=== PATIENT | female | born 1955 | race Caucasian/White ===

== ENCOUNTER → 2017-01-11 | Outpatient (CLI) | payer BC ==
[~2017-01-11] MED LIST: ALPHTAB9 PO; B-CO1CAP5 PO; CALC-354 PO; CHOL1000 PO; DULO60CA44 PO; GABA-1218 PO; GABA1CAP PO; LEVO150T PO; METF500T PO; MONT1TAB5 PO; MULTTAB PO; OMEGCAP2 PO; OMEP20TA PO; OXYC-292 PO; XRL10 PO; ZOLP10TA PO
== END | disposition home or self-care (01) ==
LOC: C.PAPS 08:31
PROVIDERS: ATTEND Obstetrics & Gynecology
DX: Z01.411 Encounter for gynecological examination (general) (routine) with abnormal findings (principal)

== ENCOUNTER → 2017-04-28 | Outpatient (CLI) | payer BC ==
[~2017-04-28] MED LIST changes: -GABA-1218 PO; +GABA300C19 PO
--- NOTE | 2017-04-28 12:44 | MAMMOGRAPHY REPORT ---
BILATERAL DIGITAL SCREENING MAMMOGRAM TOMOSYNTHESIS WITH CAD: 04/28/2017 CLINICAL HISTORY: Routine screening. Patient has no complaints. TECHNIQUE: Breast tomosynthesis in addition to standard 2D mammography was performed. Current study was also evaluated with a Computer Aided Detection (CAD) system. COMPARISON: Comparison is made to exams dated: 02/05/2016 mammogram, 01/30/2015 mammogram, 01/25/2013 ma mmogram, 01/18/2013 mammogram, and 01/13/2012 mammogram - [facility]. BREAST COMPOSITION: The tissue of both breasts is almost entirely fatty. FINDINGS: No suspicious masses, calcifications, or areas of architectural distortion are noted in ei ther breast. There has been no significant interval change compared to prior exams. IMPRESSION: ACR BI-RADS CATEGORY 1: NEGATIVE There is no mammographic evidence of malignancy. A 1 year screening mammogram is recommended. The pa tient will receive written notification of the results. Approximately 10% of breast cancers are not detected with mammography. A negative mammographic report should not delay biopsy if a clinically suggestive mass is present. Lindy Worthy M.D. ah/:04/28/2017 10:16:54 Back Joiner: Nany [facility](R)(M), [facility] letter sent: Normal 1/2 BI-RADS Code: ACR BI-RADS Category 1: Negative
== END | disposition home or self-care (01) ==
LOC: C.MAMM 08:46
PROVIDERS: ATTEND Obstetrics & Gynecology
DX: Z12.31 Encounter for screening mammogram for malignant neoplasm of breast (principal)

== ENCOUNTER → 2017-05-25 | Outpatient (CLI) | payer BC | END | disposition home or self-care (01) | LOC: C.MAMM 08:48 | PROVIDERS: ATTEND Family Medicine | DX: Z78.0 Asymptomatic menopausal state (principal); M85.852 Other specified disorders of bone density and structure, left thigh; M81.0 Age-related osteoporosis without current pathological fracture ==

== ENCOUNTER → 2018-03-23 | Outpatient (CLI) | payer OTHER ==
[~2018-03-23] MED LIST changes: +GABA-1218 PO; +GABA-1693 PO; -GABA1CAP PO; -GABA300C19 PO; +OPTIRAY 320 IV PRN
--- NOTE | 2018-03-23 16:12 | DIAGNOSTIC IMAGING REPORT ---
CT SCAN OF THE ABDOMEN AND PELVIS WITH IV CONTRAST CLINICAL HISTORY: Right lower quadrant abdominal pain. COMPARISON STUDY: KUB dated 02/11/2016. Abdominal ultrasound dated 05/05/2011. TECHNIQUE: Following the IV administration of 94 cc of Optiray 320, CT scan of the abdomen and pelvis is performed from the lung bases to the proximal femora. Images are reviewed in the axial, sagittal, and coronal planes. IV contrast was administered without complication. A dose lowering technique was utilized adhering to the principles of ALARA. CT DOSE: 1373.89 mGy.cm FINDINGS: Lung bases: The heart is normal in size and without pericardial effusion. The lung bases are clear. There is a small hiatal hernia. Liver: The contrast-enhanced liver is normal in size and contour. The liver demonstrates diffusely diminished attenuation consistent with hepatic steatosis. Fatty sparing is seen adjacent to gallbladder fossa. There is no intrahepatic biliary ductal dilatation. The hepatic veins and portal veins are patent. Gallbladder: Unremarkable. Spleen: Normal in size and attenuation. Pancreas: Moderately atrophic and grossly unremarkable. Adrenal glands: Unremarkable. Kidneys: The contrast enhanced kidneys are normal in size and without hydronephrosis. The kidneys enhance symmetrically. A subcentimeter cortical hypodensity in the left kidney likely represents a tiny cyst but is too small for definitive characterization. Abdominal vasculature: The abdominal aorta is normal in course and caliber. Bowel: There are scattered colonic diverticula without CT evidence of acute diverticulitis. No bowel obstruction is seen. The appendix is well-visualized and normal. Peritoneum: There is no intraperitoneal free air or abdominal ascites. Lymphadenopathy: None. Pelvic viscera: The bladder, uterus, and adnexa are normal as visualized. Skeletal structures: The skeletal structures are osteopenic. There is a moderate compression deformity of L3. Moderate lumbosacral spondylosis is observed. No lytic or blastic lesions are seen. There are healed left pubic ring fractures. IMPRESSION: 1. There are no acute infectious or inflammatory findings in the abdomen or pelvis. 2. Hepatic steatosis. 3. Additional findings as above. Electronically signed by: Shaka Park M.D. 03/23/2018 4:11 PM Dictated Date/Time: 03/23/2018 4:05 PM
== END | disposition home or self-care (01) ==
LOC: C.CTS 13:47
DX: R10.31 Right lower quadrant pain (principal); K76.0 Fatty (change of) liver, not elsewhere classified

== ENCOUNTER 2025-01-25 00:37 | Observation (INO) ==
--- NOTE | 2025-01-25 01:20 | Emergency Department Note ---
Impression & Plan Altered mental status, Weakness, Multiple falls ED Provider Note CHIEF COMPLAINT: Weakness, altered mental status, multiple falls HISTORY OF PRESENT ILLNESS: This 69-year-old female patient presents to the emergency department via ambulance for evaluation after multiple falls. The patient has had 2 falls since about 10 PM. She has been feeling weak and febrile for the past several days. Pt. reports some lower abdominal pain. Male visitor in the room states it took approximately 20 minutes each time she fell this evening to help her up. He states she has been unable to stay awake. He does report loss of consciousness at some point. He did not witness the falls and states he is uncertain what position the patient was in. Unclear whether or not the patient may have struck her head when she fell. Patient is any chest pain or shortness of breath. She denies any numbness or tingling. No nausea or vomiting. Patient is having difficulty staying awake and holding a conversation throughout the exam. History provided by: Patient and male visitor REVIEW OF SYSTEMS: A 10 system review of systems was performed with positives and pertinent negatives listed in the history of present illness. All other systems were reviewed and are negative. ALLERGIES: Sprite, Mobic, naproxen PHYSICAL EXAM: VITALS: Vitals are noted on the nurse's note and reviewed by myself. GENERAL: This is a 69-year-old female, in no acute distress, nondiaphoretic, well-developed well-nourished. SKIN: The skin was without rashes, erythema, edema, or bruising. There is no tenting of the skin. Capillary refill less than 2 seconds. HEAD: Normocephalic atraumatic. EARS: External auditory canals clear, tympanic membranes pearly richardson without erythema or effusion bilaterally. No hemotympanum. Negative barker sign EYES: Pupils equal round and reactive to light and accommodation. Conjunctivae without injection, sclerae without icterus. Extraocular movements intact. NOSE: Patent, turbinates without inflammation or discharge. No sinus tenderness. MOUTH: Mucous membranes moist. Tonsils are not enlarged. Pharynx without erythema or exudate. Uvula midline. Airway patent. Tongue does not deviate. NECK: Supple without nuchal rigidity. No lymphadenopathy. Cervical spine is nontender. No JVD. HEART: Regular rate and rhythm without murmurs gallops or rubs. LUNGS: Clear to auscultation bilaterally without wheezes, rales or rhonchi. No retractions or accessory muscle use. ABDOMEN: Positive bowel sounds x 4. Soft, nontender, without masses or organomegaly. Sofia sign negative. No guarding or rebound tenderness. MUSCULOSKELETAL: No muscle atrophy, erythema, or edema noted. Full range of motion without joint tenderness in all extremities. No tenderness to palpation. Normal gait. Strength 5/5 throughout. NEURO: Patient was arousable but sleeping throughout interaction. Pt. having difficulty staying awake. She is oriented to person place and time. No focal neurological deficits. An order was placed for continuous cardiac cath lab technologist. The monitor showed a normal sinus rhythm at a ventricular rate of 65 bpm, per my interpretation. EKG was reviewed by myself and found to be sinus rhythm with first-degree AV block at a rate of 87 beats per minute and per my interpretation reveals no ST elevation or depression. No T wave inversion. And when compared to previous EKG of 07/24/2020 is without significant change CT and x-ray imaging as interpreted by myself and the radiologist revealed no acute traumatic findings, with radiologist interpretation as above. I agree with the radiologist's findings as based upon my independent interpretation. EMERGENCY DEPARTMENT COURSE: The patient was evaluated as above. On initial presentation, the patient is obtunded. She is having difficulty providing history and unable to hold a conversation. She is falling asleep frequently during the evaluation. Visitor at the bedside assists with the history. There is concern for multiple falls this evening. The patient has been experiencing more more weakness and excessive fatigue over the past few days. She is afebrile on examination. She is complaining of some vague right sided pain. Unclear when this pain started. Unclear whether or not she struck her head or had any other significant injury with the multiple falls over the past several hours. There are no open wounds or bleeding. IV access was obtained, labs were drawn. Labs were reviewed. Per my interpretation, no leukocytosis. There is no anemia. There is a thrombocytopenia with platelet count of 110,000. INR 1.1. Creatinine is elevated 1.26. Lactic acid 2.4. AST mildly elevated at 47. Alkaline phosphatase mildly elevated 127. Blood glucose is 183. Lactic acid did improve with fluid resuscitation. Imaging completed as above. No evidence of acute traumatic injury. No signs of consolidation on chest x-ray or CT. Abdomen/pelvis CT without acute intra- abdominal pathology. The patient was hydrated with IV fluids. She was given a liter of IV fluids via EMS. She was given additional 500 cc here in the emergency department. On reevaluation, the patient is feeling much better. She states she feels slightly less fatigued and her mental status has improved. She is able to hold a conversation. She states she feels weak and has for the past several days. She denies any fever. She is not nauseated. She denies any back pain. She did admit to some neck stiffness and severe headache yesterday. She states that the symptoms have resolved at this time. She does spend a lot of time outside. She is generally at baseline very active. She drives and works in her garden regularly. Additional orders for Tick-borne illness labs placed. Did consider meningitis, however given the patient's resolution of the headache and neck stiffness, low suspicion for this at this time. Case was discussed with the attending physician. Do recommend admission given the patient's altered mental status and weakness. Unclear cause at this time. The patient was agreeable. I discussed the case with Dr. Badillo. He did agree to evaluate the patient for admission. Please see hospitalist dictation regarding ongoing management and final disposition of this patient. This visit is during a period of high volume and high acuity in the emergency department. I attest that I have personally reviewed the patient medication list. I attest that I have reviewed the patient's blood pressure and it was found to be normal GCS: 15 In the evaluation and treatment of this patient the following differential diagnoses were entertained: Infection, hypoglycemia, electrolyte abnormalities, overdose, toxicologic, cardiac sources, intracerebral event, neurologic, trauma, as well as other pathologies. The chart was completed utilizing [employer] Speech voice recognition software. Grammatical errors, random word insertions, pronoun errors, and incomplete sentences are an occasional consequence of this system due to software limitations, ambient noise, and hardware issues. Any formal questions or concerns about the content, text, or information contained within the body of this dictation should be directly addressed to the provider for clarification. Past Med/Surg History Problem List (Updated 01/25/25 @ 07:17 by Meme Keller PA-C) Multiple falls (Acute) Weakness (Acute) Altered mental status (Acute) Diabetes mellitus type 2, noninsulin dependent RUQ abdominal pain KIMBERLY (acute kidney injury) Malaise and fatigue Weakness Nocturnal hypoxemia Mild obstructive sleep apnea Insomnia Snoring Hypersomnia Ingrown toenail of right foot with infection Traumatic open wound of great toe with delayed healing (Acute) Pes planus (Acute) Lumbar radiculopathy Venous ulcer (Acute) Encounter for pre-operative examination Foot deformity Diabetic foot ulcer associated with type 2 diabetes mellitus (Acute) RT FOOT/ON ANTIBIOTICS CURRENLTY *WOUND CLINIC PT CURRENTLY Diabetic peripheral neuropathy associated with type 2 diabetes mellitus Medical History GERD (gastroesophageal reflux disease) ADD (attention deficit disorder) Mood disorder Hx of deep venous thrombosis 10+ YEARS AGO AFTER TKA *WAS ON BLOOD THINNER FOR SHORT TIME Diabetes mellitus, type 2 Hypothyroidism Hyperlipidemia History of COVID-24 OCTOBER 2019>RESOLVED Posterior tibial tendon dysfunction Hypertrophy of nasal turbinates Female stress incontinence Deviated nasal septum Asthma "MILD" IN PAST>NO INHALER Osteoarthritis HTN (hypertension) Surgical History Hx of cataract surgery History of colonoscopy History of tooth extraction H/O sinus surgery H/O tubal ligation History of left knee replacement Family History Father Diabetes Coronary heart disease Myocardial infarction Mother Pancreatic cancer Diabetes Coronary heart disease Myocardial infarction Hypertension Brother Diabetes Other Cancer No family history of adverse response to anesthesia Social History Smoking Status: Never smoker Second Hand Exposure: No; Do You Dip or Chew Tobacco: No; Hx Alcohol Use: Yes Hx Substance Use: No Preferred Language: Amharic Communication Ability: Effective Visual Impairment: Limited Hearing Ability: Normal Director Of Safety And Security Required: No Beliefs That Will Affect Care: None marital status: Current Living Situation: Spouse current occupational status: retired How many Children do You have: 2 How many Children do You have Comment: one child local, and unable to assist with care. able to assist "some" as needed. Feels Safe at Home: Yes Diet: regular Diet Comment: stated "I'm bad about that" regarding following diabetic diet. during the past year weight has: remained stable Assistive Devices: Denture - Upper and Glasses Allergies Allergies Allergy/AdvReac Type Severity Reaction Status Date / Time aspirin Allergy Mild HEAD GETS Verified 12/27/24 10:40 STUFFY meloxicam [From Mobic] Allergy Mild HEAD GETS Verified 12/27/24 10:40 STUFFY naproxen Allergy Mild HEAD GETS Verified 12/27/24 10:40 STUFFY Home Meds Home Medications Medication Instructions Recorded Confirmed alpha lipoic acid 50 mg tablet 200 mg PO QAM 07/16/18 01/25/25 cholecalciferol (vitamin D3) 25 1,000 unit PO QAM 07/16/18 01/25/25 mcg (1,000 unit) tablet (Vitamin D3) losartan 100 mg tablet 100 mg PO QAM 07/16/18 01/25/25 zolpidem 10 mg tablet 10 mg PO HS PRN Sleep 07/16/18 01/25/25 omeprazole 20 mg capsule,delayed 20 mg PO QAM 06/12/19 01/25/25 release diltiazem HCl 180 mg 180 mg PO QPM 06/14/19 01/25/25 capsule,extended release 24 hr (Cardizem CD) Lactobacillus acidophilus 100 mg PO DAILY 01/07/21 01/25/25 (Acidophilus capsule) acetaminophen 650 mg 650 mg PO Q12H PRN Pain 01/07/21 01/25/25 tablet,extended release (Tylenol Arthritis Pain) magnesium oxide 500 mg PO DAILY 01/07/21 01/25/25 sulindac 200 mg tablet 200 mg PO QAM 01/07/21 01/25/25 gabapentin 300 mg capsule 300 mg PO BID 02/14/22 01/25/25 metformin 1,000 mg tablet 1,000 mg PO QAM 02/14/22 01/25/25 ascorbic acid (vitamin C) 1,000 mg 1 g PO DAILY 08/10/22 01/25/25 tablet (Vitamin C) clonazepam 0.5 mg tablet 0.5 mg PO HS 08/10/22 01/25/25 cyanocobalamin (vitamin B-12) 1,500 mcg PO DAILY 08/10/22 01/25/25 1,500 mcg disintegrating tablet duloxetine 60 mg capsule,delayed 60 mg PO QAM 08/10/22 01/25/25 release (Cymbalta) indapamide 1.25 mg tablet 1.25 mg PO QAM 08/10/22 01/25/25 potassium chloride 10 mEq 10 meq PO QAM 08/10/22 01/25/25 capsule,extended release pravastatin 10 mg tablet 10 mg PO 3XWK 08/10/22 01/25/25 thyroid (pork) 180 mg tablet 180 mg PO QAM 08/10/22 01/25/25 (Levels Thyroid) vitamin B complex 1 cap PO DAILY 08/10/22 01/25/25 blood sugar diagnostic (OneTouch 01/25/25 01/25/25 Ultra Test strips) bupropion HCl 150 mg 24 hr tablet, 150 mg PO DAILY 01/25/25 01/25/25 extended release semaglutide 1 mg/dose (4 mg/3 mL) 1 mg subcut WK 01/25/25 01/25/25 subcutaneous pen injector (Ozempic) Results & Data (ED) Vital Signs Vital Signs - 24 hr 01/25/25 00:28 01/25/25 00:52 01/25/25 01:21 Temperature 36.9 C Temperature Source Oral Pulse Rate 81 90 81 Pulse Rate [Apical] Pulse Rhythm Regular Regular Pulse Rhythm [Apical] Pulse Strength Normal Pulse Strength [Apical] Respiratory Rate 18 18 Respiratory Effort / Characteristics Non-Labored Spontaneous Respiratory Depth Normal Respiratory Pattern Regular Blood Pressure 107/62 Blood Pressure [Right Arm] Blood Pressure Mean 77 Blood Pressure Mean [Right Arm] Blood Pressure Position Lying Blood Pressure Position [Right Arm] Pulse Oximetry 90 91 Oxygen Delivery Method Room Air Room Air Sepsis Recent Fever Within 48 Hours No Sepsis New/Unexplained Change in Mental Status No Sepsis Action Taken by Nursing No Action Required 01/25/25 03:00 01/25/25 04:00 01/25/25 04:50 Temperature Temperature Source Pulse Rate 70 Pulse Rate [Apical] 75 71 Pulse Rhythm Pulse Rhythm [Apical] Regular Regular Pulse Strength Pulse Strength [Apical] Normal Normal Respiratory Rate 18 16 Respiratory Effort / Characteristics Non-Labored Spontaneous Non-Labored Spontaneous Respiratory Depth Normal Normal Respiratory Pattern Regular Regular Blood Pressure Blood Pressure [Right Arm] 93/57 L 98/56 L Blood Pressure Mean Blood Pressure Mean [Right Arm] 69 70 Blood Pressure Position Blood Pressure Position [Right Arm] Lying Lying Pulse Oximetry 92 90 Oxygen Delivery Method Room Air Room Air Sepsis Recent Fever Within 48 Hours Sepsis New/Unexplained Change in Mental Status Sepsis Action Taken by Nursing 01/25/25 05:00 01/25/25 06:00 Temperature Temperature Source Pulse Rate Pulse Rate [Apical] 69 65 Pulse Rhythm Pulse Rhythm [Apical] Regular Regular Pulse Strength Pulse Strength [Apical] Normal Normal Respiratory Rate 18 20 Respiratory Effort / Characteristics Non-Labored Spontaneous Non-Labored Spontaneous Respiratory Depth Normal Normal Respiratory Pattern Regular Regular Blood Pressure Blood Pressure [Right Arm] 113/73 114/72 Blood Pressure Mean Blood Pressure Mean [Right Arm] 86 86 Blood Pressure Position Blood Pressure Position [Right Arm] Lying Lying Pulse Oximetry 96 93 Oxygen Delivery Method Room Air Room Air Sepsis Recent Fever Within 48 Hours Sepsis New/Unexplained Change in Mental Status Sepsis Action Taken by Nursing Laboratory Data 01/25/25 00:56 01/25/25 00:56 Lab Results 01/25/25 01/25/25 01/25/25 Range/Units 00:56 01:35 01:41 WBC 7.27 (4.8-10.8) K/ul RBC 4.74 (4.20-5.40) M/uL Hgb 14.1 (12.0-16.0) g/dl POC Hgb 14.6 (12.0-16.0) g/dl Hct 41.7 (37.0-47.0) % POC Hct 43 (37-47) % MCV 88.0 (80.0-100.0) fL MCH 29.7 (25.0-34.0) pg MCHC 33.8 (32.0-36.0) g/dL RDW Std Deviation 40.5 (36.4-46.3) fL RDW Coeff of Farhan 12.6 (11.5-14.5) % Plt Count 110 L (130-400) K/uL MPV 11.5 (9.4-12.4) fL Immature Gran % (Auto) 1.1 % Neut % (Auto) 76.7 % Lymph % (Auto) 14.6 % [place] % (Auto) 7.2 % Eos % (Auto) 0.0 % Baso % (Auto) 0.4 % Neut # (Auto) 5.58 (1.40-6.50) K/uL Lymph # (Auto) 1.06 L (1.20-3.40) K/uL [place] # (Auto) 0.52 (0.11-0.59) K/uL Eos # (Auto) 0.00 (0.00-0.50) K/uL Baso # (Auto) 0.03 (0.00-0.20) K/uL Immature Gran # (Auto) 0.08 (0.01-0.20) K/uL Toxic Vacuolation 1+ Polychromasia 1+ Echinocytes 1+ PT Cancelled INR Cancelled POC Sodium 137 (135-144) mmol/L Sodium 135 L (136-145) mmol/L POC Potassium 3.4 (3.3-5.0) mmol/L Potassium 3.6 (3.5-5.1) mmol/L POC Chloride 101 (101-112) mmol/L Chloride 102 (98-107) mmol/L Carbon Dioxide 23 (21-32) mmol/L POC Total CO2 22 L (24-31) mmol/L Anion Gap 10 (3-11) POC Anion Gap 18.0 (16-25) mmol/L POC BUN 22 H (7-18) mg/dl BUN 22 (6-23) mg/dl Creatinine 1.26 H (0.6-1.2) mg/dl POC Creatinine 1.3 (0.6-1.3) mg/dl Est Cr Clr Drug Dosing 52.7 ml/min eGFR 45.93 BUN/Creatinine Ratio 17.5 (10-20) Glucose 215 H (70-99(Fasting)) mg/dl POC Glucose (other) 183 H (70-99) mg/dl Lactate 2.4 H* (0.4-2.0) mmol/L Calcium 8.4 L (8.6-10.3) mg/dl POC Ioniz Calcium Maxine 0.96 L (1.12-1.32) mmol/l Magnesium 1.8 (1.7-2.4) mg/dl Total Bilirubin 0.6 (0.2-1.0) mg/dl AST 47 H (13-39) U/L ALT 32 (7-52) U/L Alkaline Phosphatase 127 H (34-104) U/L Total Creatine Kinase 34 (26-192) U/L Troponin I High Sens 5.3 (0-14) pg/ml Total Protein 6.2 (6.0-8.3) gm/dl Albumin 3.4 (3.4-5.0) gm/dl Globulin 2.8 (2.5-4.0) gm/dl Albumin/Globulin Ratio 1.2 (0.9-2) TSH 1.633 (0.300-4.500) uIu/ml Urine Color Urine Appearance (Clear) Urine pH (4.5-7.5) Ur Specific [place] (1.000-1.030) Urine Protein (Negative) Urine Glucose (UA) (Negative) Urine Ketones (Negative) Urine Blood (Negative) Urine Nitrite (Negative) Urine Bilirubin (Negative) Urine Urobilinogen (Negative) Ur Leukocyte Esterase (Negative) Urine WBC (Auto) (0-5) /hpf Urine RBC (Auto) (0-2) /hpf U Hyaline Cast (Auto) (0-2) /lpf U Epithel Cells (Auto) (0-2) /hpf Urine Bacteria (Auto) (None Seen) Urine Comment Adenovirus (PCR) (NotDetected) Anaplasma Smear Babesia Smear B. pertussis DNA (PCR) (NotDetected) B.parapertussis DNA PCR (NotDetected) Lyme Disease Screen (Negative) C. pneumoniae DNA (PCR) (NotDetected) Coronavirus OC43 (PCR) (NotDetected) Coronavirus HKU1 (PCR) (NotDetected) Coronavirus 229E (PCR) (NotDetected) SARS-CoV-2 (PCR) (NotDetected) Coronavirus NL63 (PCR) (NotDetected) Human Metapneumovir PCR (NotDetected) Influenza Type A (PCR) (NotDetected) Influenza Type B (PCR) (NotDetected) M. pneumoniae (PCR) (NotDetected) Parainfluenza 1 (PCR) (NotDetected) Parainfluenza 2 (PCR) (NotDetected) Parainfluenza 3 (PCR) (NotDetected) Parainfluenza 4 (PCR) (NotDetected) RSV (PCR) (NotDetected) Entero/Rhino (PCR) (NotDetected) 01/25/25 01/25/25 01/25/25 Range/Units 02:21 02:29 02:33 WBC (4.8-10.8) K/ul RBC (4.20-5.40) M/uL Hgb (12.0-16.0) g/dl POC Hgb (12.0-16.0) g/dl Hct (37.0-47.0) % POC Hct (37-47) % MCV (80.0-100.0) fL MCH (25.0-34.0) pg MCHC (32.0-36.0) g/dL RDW Std Deviation (36.4-46.3) fL RDW Coeff of Farhan (11.5-14.5) % Plt Count (130-400) K/uL MPV (9.4-12.4) fL Immature Gran % (Auto) % Neut % (Auto) % Lymph % (Auto) % [place] % (Auto) % Eos % (Auto) % Baso % (Auto) % Neut # (Auto) (1.40-6.50) K/uL Lymph # (Auto) (1.20-3.40) K/uL [place] # (Auto) (0.11-0.59) K/uL Eos # (Auto) (0.00-0.50) K/uL Baso # (Auto) (0.00-0.20) K/uL Immature Gran # (Auto) (0.01-0.20) K/uL Toxic Vacuolation Polychromasia Echinocytes PT 11.4 INR 1.1 POC Sodium (135-144) mmol/L Sodium (136-145) mmol/L POC Potassium (3.3-5.0) mmol/L Potassium (3.5-5.1) mmol/L POC Chloride (101-112) mmol/L Chloride (98-107) mmol/L Carbon Dioxide (21-32) mmol/L POC Total CO2 (24-31) mmol/L Anion Gap (3-11) POC Anion Gap (16-25) mmol/L POC BUN (7-18) mg/dl BUN (6-23) mg/dl Creatinine (0.6-1.2) mg/dl POC Creatinine (0.6-1.3) mg/dl Est Cr Clr Drug Dosing ml/min eGFR BUN/Creatinine Ratio (10-20) Glucose (70-99(Fasting)) mg/dl POC Glucose (other) (70-99) mg/dl Lactate (0.4-2.0) mmol/L Calcium (8.6-10.3) mg/dl POC Ioniz Calcium Maxine (1.12-1.32) mmol/l Magnesium (1.7-2.4) mg/dl Total Bilirubin (0.2-1.0) mg/dl AST (13-39) U/L ALT (7-52) U/L Alkaline Phosphatase (34-104) U/L Total Creatine Kinase (26-192) U/L Troponin I High Sens (0-14) pg/ml Total Protein (6.0-8.3) gm/dl Albumin (3.4-5.0) gm/dl Globulin (2.5-4.0) gm/dl Albumin/Globulin Ratio (0.9-2) TSH (0.300-4.500) uIu/ml Urine Color Dark Yellow Urine Appearance Clear (Clear) Urine pH 5.0 (4.5-7.5) Ur Specific [place] > 1.045 H (1.000-1.030) Urine Protein Trace H (Negative) Urine Glucose (UA) Negative (Negative) Urine Ketones Negative (Negative) Urine Blood Negative (Negative) Urine Nitrite Negative (Negative) Urine Bilirubin Negative (Negative) Urine Urobilinogen Negative (Negative) Ur Leukocyte Esterase Trace H (Negative) Urine WBC (Auto) 0-5 (0-5) /hpf Urine RBC (Auto) 3-5 H (0-2) /hpf U Hyaline Cast (Auto) 11-20 H (0-2) /lpf U Epithel Cells (Auto) 0-2 (0-2) /hpf Urine Bacteria (Auto) None Seen (None Seen) Urine Comment Adenovirus (PCR) Not Detected (NotDetected) Anaplasma Smear Babesia Smear B. pertussis DNA (PCR) Not Detected (NotDetected) B.parapertussis DNA PCR Not Detected (NotDetected) Lyme Disease Screen (Negative) C. pneumoniae DNA (PCR) Not Detected (NotDetected) Coronavirus OC43 (PCR) Not Detected (NotDetected) Coronavirus HKU1 (PCR) Not Detected (NotDetected) Coronavirus 229E (PCR) Not Detected (NotDetected) SARS-CoV-2 (PCR) Not Detected (NotDetected) Coronavirus NL63 (PCR) Not Detected (NotDetected) Human Metapneumovir PCR Not Detected (NotDetected) Influenza Type A (PCR) Not Detected (NotDetected) Influenza Type B (PCR) Not Detected (NotDetected) M. pneumoniae (PCR) Not Detected (NotDetected) Parainfluenza 1 (PCR) Not Detected (NotDetected) Parainfluenza 2 (PCR) Not Detected (NotDetected) Parainfluenza 3 (PCR) Not Detected (NotDetected) Parainfluenza 4 (PCR) Not Detected (NotDetected) RSV (PCR) Not Detected (NotDetected) Entero/Rhino (PCR) Not Detected (NotDetected) 01/25/25 01/25/25 Range/Units 03:23 04:43 WBC (4.8-10.8) K/ul RBC (4.20-5.40) M/uL Hgb (12.0-16.0) g/dl POC Hgb (12.0-16.0) g/dl Hct (37.0-47.0) % POC Hct (37-47) % MCV (80.0-100.0) fL MCH (25.0-34.0) pg MCHC (32.0-36.0) g/dL RDW Std Deviation (36.4-46.3) fL RDW Coeff of Farhan (11.5-14.5) % Plt Count (130-400) K/uL MPV (9.4-12.4) fL Immature Gran % (Auto) % Neut % (Auto) % Lymph % (Auto) % [place] % (Auto) % Eos % (Auto) % Baso % (Auto) % Neut # (Auto) (1.40-6.50) K/uL Lymph # (Auto) (1.20-3.40) K/uL [place] # (Auto) (0.11-0.59) K/uL Eos # (Auto) (0.00-0.50) K/uL Baso # (Auto) (0.00-0.20) K/uL Immature Gran # (Auto) (0.01-0.20) K/uL Toxic Vacuolation Polychromasia Echinocytes PT INR POC Sodium (135-144) mmol/L Sodium (136-145) mmol/L POC Potassium (3.3-5.0) mmol/L Potassium (3.5-5.1) mmol/L POC Chloride (101-112) mmol/L Chloride (98-107) mmol/L Carbon Dioxide (21-32) mmol/L POC Total CO2 (24-31) mmol/L Anion Gap (3-11) POC Anion Gap (16-25) mmol/L POC BUN (7-18) mg/dl BUN (6-23) mg/dl Creatinine (0.6-1.2) mg/dl POC Creatinine (0.6-1.3) mg/dl Est Cr Clr Drug Dosing ml/min eGFR BUN/Creatinine Ratio (10-20) Glucose (70-99(Fasting)) mg/dl POC Glucose (other) (70-99) mg/dl Lactate 1.6 (0.4-2.0) mmol/L Calcium (8.6-10.3) mg/dl POC Ioniz Calcium Maxine (1.12-1.32) mmol/l Magnesium (1.7-2.4) mg/dl Total Bilirubin (0.2-1.0) mg/dl AST (13-39) U/L ALT (7-52) U/L Alkaline Phosphatase (34-104) U/L Total Creatine Kinase (26-192) U/L Troponin I High Sens (0-14) pg/ml Total Protein (6.0-8.3) gm/dl Albumin (3.4-5.0) gm/dl Globulin (2.5-4.0) gm/dl Albumin/Globulin Ratio (0.9-2) TSH (0.300-4.500) uIu/ml Urine Color Urine Appearance (Clear) Urine pH (4.5-7.5) Ur Specific [place] (1.000-1.030) Urine Protein (Negative) Urine Glucose (UA) (Negative) Urine Ketones (Negative) Urine Blood (Negative) Urine Nitrite (Negative) Urine Bilirubin (Negative) Urine Urobilinogen (Negative) Ur Leukocyte Esterase (Negative) Urine WBC (Auto) (0-5) /hpf Urine RBC (Auto) (0-2) /hpf U Hyaline Cast (Auto) (0-2) /lpf U Epithel Cells (Auto) (0-2) /hpf Urine Bacteria (Auto) (None Seen) Urine Comment Adenovirus (PCR) (NotDetected) Anaplasma Smear See Comment Babesia Smear See Comment B. pertussis DNA (PCR) (NotDetected) B.parapertussis DNA PCR (NotDetected) Lyme Disease Screen Negative (Negative) C. pneumoniae DNA (PCR) (NotDetected) Coronavirus OC43 (PCR) (NotDetected) Coronavirus HKU1 (PCR) (NotDetected) Coronavirus 229E (PCR) (NotDetected) SARS-CoV-2 (PCR) (NotDetected) Coronavirus NL63 (PCR) (NotDetected) Human Metapneumovir PCR (NotDetected) Influenza Type A (PCR) (NotDetected) Influenza Type B (PCR) (NotDetected) M. pneumoniae (PCR) (NotDetected) Parainfluenza 1 (PCR) (NotDetected) Parainfluenza 2 (PCR) (NotDetected) Parainfluenza 3 (PCR) (NotDetected) Parainfluenza 4 (PCR) (NotDetected) RSV (PCR) (NotDetected) Entero/Rhino (PCR) (NotDetected) Administered Medications Discontinued Medications Sodium Chloride (Nss) 500 mls @ 999 mls/hr IV .Q31M PATSY Stop: 01/25/25 02:00 Last Infusion: 01/25/25 03:08 Dose: Infused Documented By: Admin: 01/25/25 02:37 Dose: 999 mls/hr Documented By: GREGORY Sodium Chloride (Nss) 1,000 mls @ 999 mls/hr IV .Q1H1M ONE Stop: 01/25/25 06:59 Last Admin: 01/25/25 06:21 Dose: Not Given Documented By: MECCA Sodium Chloride (Nss) 500 mls @ 999 mls/hr IV .Q31M ONE Stop: 01/25/25 06:33 Last Admin: 01/25/25 06:24 Dose: 999 mls/hr Documented By: MECCA Ioversol (Optiray 320 100ml) 93 ml IV ONCE ONE Stop: 01/25/25 01:54 Last Admin: 01/25/25 01:55 Dose: 93 ml Documented By: KERLINE Imaging Data Radiologist's Impression: Abdomen/Pelvis CT 01/25/25 01:16 EXAM: CT abd pelvis IV con only CLINICAL HISTORY: unwitnessed fall, abdominal pain TECHNIQUE: Multiple contiguous axial images were obtained from the level of diaphragm to the pubis symphysis. This study was acquired after the IV administration of iodinated contrast material, given the patient's indications for the examination. If IV contrast material had not been administered, the likelihood of detecting abnormalities relevant to the patient's condition would have been substantially decreased. Coronal and sagittal reformatted images were generated and reviewed to improve anatomic localization and optimize lesion detection. CT scan was performed according to ALARA (as low as reasonably achievable). COMPARISON: CT, 02/13/2019 14:50:58 CORE FINISHER FINDINGS: The visualized lung bases show basal dependant atelectasis. ABDOMEN/PELVIS: The liver is normal in size and attenuation. No focal liver lesions are seen. There is mild extrahepatic biliary ductal dilatation (7.6mm) with no radiodense calculus within. Hepatic vasculature is patent. The gallbladder is unremarkable. The spleen, pancreas, and adrenal glands are unremarkable. The kidneys are normal in size and attenuation. There is no hydronephrosis or perinephric fat stranding. No renal calculi or renal masses are identified. The ureters are normal in caliber and no ureteral calculi are seen. The bladder is normal in contour. Uterus and bilateral adnexa are unremarkable. No evidence of focal or diffuse bowel wall thickening or evidence of bowel obstruction is seen. The appendix is visualized in the right lower quadrant and appears within normal limits. No adenopathy or fluid collections are seen. The aorta is normal in caliber. No aggressive appearing osseous lesions are identified. Significant degenerative changes in visualized spine. Lumbarisation of S1 vertebra. Old healed fracture of left inferior pubic ramus. IMPRESSION: 1. No acute intra-abdominal pathology detected. 2. Mild extrahepatic biliary ductal dilatation, likely senile prominence. 3. Spondylodegenerative changes with dextroscoliosis of visualised spine and diffuse osteopenia of visualised bones No interval changes. Electronically signed by Delfin Barnett 01-25-2025 04:[address] 01/25/25 01:16 EXAM: CT cervical spine wo con CLINICAL HISTORY: unwitnessed fall TECHNIQUE: Computed tomography of the cervical spine performed without intravenous contrast. Contiguous axial images were obtained from the skull base to T2, with sagittal and coronal reformatted images reconstructed from the axial data. CT scan was performed according to ALARA (as low as reasonable achievable). COMPARISON: No FINDINGS: The normal cervical lordotic curvature is exaggerated. Degenerative changes at atlanto-odontoid joint in the form of decreased joint space and marginal osteophytes. Cervical vertebral bodies are normal in height and alignment, with no evidence of fracture or subluxation. Lateral masses of C1 are symmetrical, and the dens is intact. Prevertebral soft tissues are not widened. The remaining suprahyoid and infrahyoid soft tissues in the neck are unremarkable. C2-C3: No disc bulge, mass effect on the cord or neuroforaminal narrowing. C3-C4: No disc bulge, mass effect on the cord or neuroforaminal narrowing. C4-C5: No disc bulge, mass effect on the cord or neuroforaminal narrowing. C5-C6: No disc bulge, mass effect on the cord or neuroforaminal narrowing. C6-C7: No disc bulge, mass effect on the cord or neuroforaminal narrowing. C7-T1: No disc bulge, mass effect on the cord or neuroforaminal narrowing. Thyroid gland appears unremarkable. IMPRESSION: 1. No acute fracture or subluxation in the cervical spine. 2. Exaggerated cervical lordosis. 3. Degenerative changes at atlanto-odontoid joint in the form of decreased joint space and marginal osteophytes. 4. Generalized decrease in bone density. Electronically signed by Delfin Barnett 01-25-2025 04:[address] 01/25/25 01:16 EXAM: CT chest diagnostic w con CLINICAL HISTORY: unwitnessed fall, AMS TECHNIQUE: Contiguous axial images were obtained from the neck base through the upper abdomen following intravenous administration of contrast material. If IV contrast material had not been administered, the likelihood of detecting abnormalities relevant to the patient's condition would have been substantially decreased. In addition, sagittal and coronal reconstructions were performed. CT scan was performed according to ALARA (as low as reasonable achievable). COMPARISON: 07/24/2020 17:54:03 CORE FINISHER FINDINGS: Basal dependant ground glass densities and septal thickening in bilateral lower lobes. Rest of the lungs are clear, with no focal areas of consolidation. No pulmonary nodules are seen. The central airways are patent. There are no pleural effusions. No pneumothorax is seen. Multiple small mediastinal nodes identified. The visualized thyroid is unremarkable. The heart, aorta, and pulmonary arteries are of normal size and configuration. No pericardial effusion is identified. Imaged portions of the upper abdomen are unremarkable. No aggressive appearing osseous lesions are identified. Degenerative changes in visualised spine IMPRESSION: 1. Basal dependant ground glass densities and septal thickening in bilateral lower lobes.-could be positional 2. No acute intrathoracic abnormality noted. No patchy subpleural pulmonary infiltrates noted on present study. Electronically signed by Delfin Barnett 01-25-2025 03:56 AM Chest X-Ray 01/25/25 01:17 EXAM: XR chest 1V portable CLINICAL HISTORY: weakness TECHNIQUE: Radiograph of chest was acquired. COMPARISON: 07/24/2020 11:15:07 CORE FINISHER FINDINGS: Rotated radiograph with inadequate inspiration The lungs are clear and well-expanded with no pulmonary infiltrate or pleural effusion. The cardiomediastinal silhouette is within normal limits. No acute osseous abnormality. Degenerative changes of visualised spine IMPRESSION: 1. No acute cardiopulmonary disease. No new finding. Electronically signed by Delfin Barnett 01-25-2025 04:[address] 01/25/25 01:17 EXAM: CT head/brain wo con CLINICAL HISTORY: fall, AMS TECHNIQUE: Multiple axial images are obtained from the skull base to the vertex without contrast. CT scan was performed according to ALARA (as low as reasonable achievable). COMPARISON: None. FINDINGS: There is cerebral atrophy. No evidence of space occupying lesion, hemorrhage, edema, mass effect, midline shift, extra axial collection, or hydrocephalus is noted. Basal cisterns are symmetric and normal in size and configuration. There are scattered periventricular hypodensities as can be seen with chronic microvascular ischemic changes. The richardson-white matter differentiation is preserved. Visualized paranasal sinuses and mastoid air cells are well aerated. Orbital contents are within normal limits. Bony structures are intact. IMPRESSION: 1. No evidence of acute intracranial abnormality is demonstrated. 2. Chronic microvascular ischemic changes. 3. Cerebral atrophy. Electronically signed by Delfin Barnett 01-25-2025 03:16 AM Discharge Plan Visit Data Chief Complaint: Fall Stated Complaint: GLF, Weakness ED Provider: Fatuma Pavon ED Midlevel Provider: Meme Keller Discharge Problem: Altered mental status, Weakness, Multiple falls Patient Disposition: Admitted As Inpatient Condition: Fair Forms Stand Alone Forms: My [facility], Important Visit Information Prescriptions Prescriptions: No Action diltiazem HCl [Cardizem CD] 180 mg capsule,extended release 24hr 180 mg PO QPM magnesium oxide 500 mg tablet 500 mg PO DAILY Lactobacillus acidophilus [Acidophilus] Capsule 100 mg PO DAILY acetaminophen [Tylenol Arthritis Pain] 650 mg tablet extended release 650 mg PO Q12H PRN (Reason: Pain) sulindac 200 mg tablet 200 mg PO QAM gabapentin 300 mg capsule 300 mg PO BID metformin 1,000 mg tablet 1,000 mg PO QAM zolpidem 10 mg tablet 10 mg PO HS PRN (Reason: Sleep) losartan 100 mg tablet 100 mg PO QAM alpha lipoic acid 50 mg Tablet 200 mg PO QAM cholecalciferol (vitamin D3) [Vitamin D3] 1,000 unit Tablet 1,000 unit PO QAM omeprazole 20 mg capsule,delayed release(DR/EC) 20 mg PO QAM ascorbic acid (vitamin C) [Vitamin C] 1,000 mg Tablet 1 g PO DAILY potassium chloride 10 mEq Capsule, Extended Release 10 meq PO QAM clonazepam 0.5 mg Tablet 0.5 mg PO HS Rx Instructions: administer 30 minutes before bedtime pravastatin 10 mg Tablet 10 mg PO 3XWK indapamide 1.25 mg Tablet 1.25 mg PO QAM vitamin B complex Capsule 1 cap PO DAILY duloxetine [Cymbalta] 60 mg Capsule,Delayed Release(Dr/Ec) 60 mg PO QAM Levels Thyroid 180 mg Tablet 180 mg PO QAM cyanocobalamin (vitamin B-12) 1,500 mcg Tablet,Disintegrating 1,500 mcg PO DAILY (DME) OneTouch Ultra Test Strip MISCELLANEOUS bupropion HCl 150 mg tablet extended release 24 hr 150 mg PO DAILY Ozempic 1 mg/dose (4 mg/3 mL) pen injector 1 mg SUBCUT WK Referrals Referrals: Kim Rodríguez PA-C [Primary Care Provider] -
[2025-01-25] MEDS: OPTIRAY 320 100ml IV ONE (01:55)
[2025-01-25 02:02] LABS: Hematocrit (blood only) 41.7 % (37.0-47.0); Hemoglobin 14.1 g/dl (12.0-16.0); Mean Corpuscular Hemoglobin 29.7 pg (25.0-34.0); Mean Corpuscular Hgb Conc 33.8 g/dL (32.0-36.0); Mean Platelet Volume 11.5 fL (9.4-12.4); Platelet Count 110 K/uL (130-400); RDW Coefficient of Variation 12.6 % (11.5-14.5); RDW Standard Deviation 40.5 fL (36.4-46.3); Red Blood Count 4.74 M/uL (4.20-5.40); White Blood Count 7.27 K/ul (4.8-10.8)
[2025-01-25 02:03] LABS: Albumin Level 3.4 gm/dl (3.4-5.0); Bilirubin,Total 0.6 mg/dl (0.2-1.0); Calcium 8.4 mg/dl (8.6-10.3); Magnesium 1.8 mg/dl (1.7-2.4); Potassium 3.6 mmol/L (3.5-5.1)
[2025-01-25 02:09] LABS: Albumin Globulin Ratio 1.2 (0.9-2); BUN Creatinine Ratio 17.5 (10-20); Creatinine Clr Calc Pharmacy 52.7 ml/min; Globulin 2.8 gm/dl (2.5-4.0); Total Protein 6.2 gm/dl (6.0-8.3)
[2025-01-25 02:13] LABS: Troponin I High Sensitivity 5.3 pg/ml (0-14)
[2025-01-25 02:18] LABS: Basophils # (auto) 0.03 K/uL (0.00-0.20); Basophils % (auto) 0.4 %; Echinocytes 1+; Immature Granulocytes # (auto) 0.08 K/uL (0.01-0.20); Immature Granulocytes % (auto) 1.1 %; Lymphocytes # (auto) 1.06 K/uL (1.20-3.40); Lymphocytes % (auto) 14.6 %; Monocytes # (auto) 0.52 K/uL (0.11-0.59); Monocytes % (auto) 7.2 %; Neutrophils # (auto) 5.58 K/uL (1.40-6.50); Neutrophils % (auto) 76.7 %; Polychromasia 1+; Toxic Vacuolation 1+
[2025-01-25 02:22] LABS: Thyroid Stimulating Hormone 1.633 uIu/ml (0.300-4.500)
[2025-01-25] MEDS: SODIUM CHLORIDE 0.9% 500 ML IV SCH (02:37)
[2025-01-25 03:06] LABS: INR 1.1 (0.9-1.1); Prothrombin Time 11.4 Seconds (9.0-12.0)
[2025-01-25 03:14] LABS: Appearance Urine Clear (Clear); Bacteria Urine Automated None Seen (None Seen); Bilirubin Urine Negative (Negative); Blood Urine Negative (Negative); Color Urine Dark Yellow; Epithelial Cell Urine Auto 0-2 /hpf (0-2); Glucose Urine UA Negative (Negative); Ketones Urine Negative (Negative); Leukocyte Esterase Urine Trace (Negative); Nitrite Urine Negative (Negative); Protein Urine Trace (Negative); Specific Gravity Urine > 1.045 (1.000-1.030); Urobilinogen Urine Negative (Negative); WBC Urine Automated 0-5 /hpf (0-5)
--- NOTE | 2025-01-25 03:17 | CT Scan Report ---
EXAM: CT head/brain wo con CLINICAL HISTORY: fall, AMS TECHNIQUE: Multiple axial images are obtained from the skull base to the vertex without contrast. CT scan was performed according to ALARA (as low as reasonable achievable). COMPARISON: None. FINDINGS: There is cerebral atrophy. No evidence of space occupying lesion, hemorrhage, edema, mass effect, midline shift, extra axial collection, or hydrocephalus is noted. Basal cisterns are symmetric and normal in size and configuration. There are scattered periventricular hypodensities as can be seen with chronic microvascular ischemic changes. The richardson-white matter differentiation is preserved. Visualized paranasal sinuses and mastoid air cells are well aerated. Orbital contents are within normal limits. Bony structures are intact. IMPRESSION: 1. No evidence of acute intracranial abnormality is demonstrated. 2. Chronic microvascular ischemic changes. 3. Cerebral atrophy. Electronically signed by Delfin Barnett 01-25-2025 03:16 AM
[2025-01-25 03:35] LABS: iSTAT Creatinine 1.3 mg/dl (0.6-1.3); iSTAT Hemoglobin 14.6 g/dl (12.0-16.0); iSTAT Ionized Calcium 0.96 mmol/l (1.12-1.32); iSTAT Potassium 3.4 mmol/L (3.3-5.0)
[2025-01-25 03:51] LABS: Adenovirus PCR Not Detected (NotDetected); Bordetella parapertussis PCR Not Detected (NotDetected); Bordetella pertussis PCR Not Detected (NotDetected); Chlamydia pneumoniae PCR Not Detected (NotDetected); Coronavirus 229E PCR Not Detected (NotDetected); Coronavirus CoV-2 (COVID19)PCR Not Detected (NotDetected); Coronavirus HKU1 PCR Not Detected (NotDetected); Coronavirus NL63 PCR Not Detected (NotDetected); Coronavirus OC43PCR Not Detected (NotDetected); Human Metapneumovirus PCR Not Detected (NotDetected); Influenza A PCR Not Detected (NotDetected); Influenza B PCR Not Detected (NotDetected); Mycoplasma pneumoniae PCR Not Detected (NotDetected); Parainfluenza Virus 1 PCR Not Detected (NotDetected); Parainfluenza Virus 2 PCR Not Detected (NotDetected); Parainfluenza Virus 3 PCR Not Detected (NotDetected); Parainfluenza Virus 4 PCR Not Detected (NotDetected); Respiratory Syncytial VirusPCR Not Detected (NotDetected); Rhinovirus/Enterovirus PCR Not Detected (NotDetected)
--- NOTE | 2025-01-25 03:57 | CT Scan Report ---
EXAM: CT chest diagnostic w con CLINICAL HISTORY: unwitnessed fall, AMS TECHNIQUE: Contiguous axial images were obtained from the neck base through the upper abdomen following intravenous administration of contrast material. If IV contrast material had not been administered, the likelihood of detecting abnormalities relevant to the patient's condition would have been substantially decreased. In addition, sagittal and coronal reconstructions were performed. CT scan was performed according to ALARA (as low as reasonable achievable). COMPARISON: 07/24/2020 17:54:03 ACCOUNTS RECEIVABLE SPECIALIST FINDINGS: Basal dependant ground glass densities and septal thickening in bilateral lower lobes. Rest of the lungs are clear, with no focal areas of consolidation. No pulmonary nodules are seen. The central airways are patent. There are no pleural effusions. No pneumothorax is seen. Multiple small mediastinal nodes identified. The visualized thyroid is unremarkable. The heart, aorta, and pulmonary arteries are of normal size and configuration. No pericardial effusion is identified. Imaged portions of the upper abdomen are unremarkable. No aggressive appearing osseous lesions are identified. Degenerative changes in visualised spine IMPRESSION: 1. Basal dependant ground glass densities and septal thickening in bilateral lower lobes.-could be positional 2. No acute intrathoracic abnormality noted. No patchy subpleural pulmonary infiltrates noted on present study. Electronically signed by Delfin Barnett 01-25-2025 03:56 AM
--- NOTE | 2025-01-25 04:01 | XRay Report ---
EXAM: XR chest 1V portable CLINICAL HISTORY: weakness TECHNIQUE: Radiograph of chest was acquired. COMPARISON: 07/24/2020 11:15:07 INSURANCE BILLING CLERK FINDINGS: Rotated radiograph with inadequate inspiration The lungs are clear and well-expanded with no pulmonary infiltrate or pleural effusion. The cardiomediastinal silhouette is within normal limits. No acute osseous abnormality. Degenerative changes of visualised spine IMPRESSION: 1. No acute cardiopulmonary disease. No new finding. Electronically signed by Delfin Barnett 01-25-2025 04:00 AM
--- NOTE | 2025-01-25 04:01 | CT Scan Report ---
EXAM: CT cervical spine wo con CLINICAL HISTORY: unwitnessed fall TECHNIQUE: Computed tomography of the cervical spine performed without intravenous contrast. Contiguous axial images were obtained from the skull base to T2, with sagittal and coronal reformatted images reconstructed from the axial data. CT scan was performed according to ALARA (as low as reasonable achievable). COMPARISON: No FINDINGS: The normal cervical lordotic curvature is exaggerated. Degenerative changes at atlanto-odontoid joint in the form of decreased joint space and marginal osteophytes. Cervical vertebral bodies are normal in height and alignment, with no evidence of fracture or subluxation. Lateral masses of C1 are symmetrical, and the dens is intact. Prevertebral soft tissues are not widened. The remaining suprahyoid and infrahyoid soft tissues in the neck are unremarkable. C2-C3: No disc bulge, mass effect on the cord or neuroforaminal narrowing. C3-C4: No disc bulge, mass effect on the cord or neuroforaminal narrowing. C4-C5: No disc bulge, mass effect on the cord or neuroforaminal narrowing. C5-C6: No disc bulge, mass effect on the cord or neuroforaminal narrowing. C6-C7: No disc bulge, mass effect on the cord or neuroforaminal narrowing. C7-T1: No disc bulge, mass effect on the cord or neuroforaminal narrowing. Thyroid gland appears unremarkable. IMPRESSION: 1. No acute fracture or subluxation in the cervical spine. 2. Exaggerated cervical lordosis. 3. Degenerative changes at atlanto-odontoid joint in the form of decreased joint space and marginal osteophytes. 4. Generalized decrease in bone density. Electronically signed by Delfin Barnett 01-25-2025 04:00 AM
--- NOTE | 2025-01-25 04:19 | CT Scan Report ---
EXAM: CT abd pelvis IV con only CLINICAL HISTORY: unwitnessed fall, abdominal pain TECHNIQUE: Multiple contiguous axial images were obtained from the level of diaphragm to the pubis symphysis. This study was acquired after the IV administration of iodinated contrast material, given the patient's indications for the examination. If IV contrast material had not been administered, the likelihood of detecting abnormalities relevant to the patient's condition would have been substantially decreased. Coronal and sagittal reformatted images were generated and reviewed to improve anatomic localization and optimize lesion detection. CT scan was performed according to ALARA (as low as reasonably achievable). COMPARISON: CT, 02/13/2019 14:50:58 ADMINISTRATIVE SUPPORT TECHNICIAN FINDINGS: The visualized lung bases show basal dependant atelectasis. ABDOMEN/PELVIS: The liver is normal in size and attenuation. No focal liver lesions are seen. There is mild extrahepatic biliary ductal dilatation (7.6mm) with no radiodense calculus within. Hepatic vasculature is patent. The gallbladder is unremarkable. The spleen, pancreas, and adrenal glands are unremarkable. The kidneys are normal in size and attenuation. There is no hydronephrosis or perinephric fat stranding. No renal calculi or renal masses are identified. The ureters are normal in caliber and no ureteral calculi are seen. The bladder is normal in contour. Uterus and bilateral adnexa are unremarkable. No evidence of focal or diffuse bowel wall thickening or evidence of bowel obstruction is seen. The appendix is visualized in the right lower quadrant and appears within normal limits. No adenopathy or fluid collections are seen. The aorta is normal in caliber. No aggressive appearing osseous lesions are identified. Significant degenerative changes in visualized spine. Lumbarisation of S1 vertebra. Old healed fracture of left inferior pubic ramus. IMPRESSION: 1. No acute intra-abdominal pathology detected. 2. Mild extrahepatic biliary ductal dilatation, likely senile prominence. 3. Spondylodegenerative changes with dextroscoliosis of visualised spine and diffuse osteopenia of visualised bones No interval changes. Electronically signed by Delfin Barnett 01-25-2025 04:19 AM
--- NOTE | 2025-01-25 05:20 | History & Physical Report ---
Date of Service January 25, 2025 Assessment & Plan (1) Weakness: (2) Malaise and fatigue: (3) KIMBERLY (acute kidney injury): (4) RUQ abdominal pain: (5) Diabetes mellitus type 2, noninsulin dependent: (6) Lumbar radiculopathy: (7) Mild obstructive sleep apnea: Plan Pt is a 69 yo female with a past med hx of lumbar radiculopathy, CHIQUITA on CPAP, HTN, and DMT2 who presents to the hospital on 01/25 for falls x2 and ongoing weakness along with sick symptoms. #Weakness #General malaise - admitted for falls x2 at home and weakness along with generalized malaise symptoms and subjective fevers - given lowered platelets and nonspecific infection symptoms, suspect tick- borne; these are pending - blood cx pending - if worsens, would consider brain MRI +/- lumbar puncture given symptoms yesterday of neck stiffness/headache, although these not present today - CRP and procal pending - will tx empirically with doxy - of note, she is on multiple drugs that can be sedating; zolpidem, clonazepam, gabapentin #KIMBERLY - no hx CKD - Cr on admission 1.26 - given 500mL bolus x2, will do sub-maintenance fluids 80/hr for 1 bag for further hydration while encouraging po intake #RUQ pain - CT abd showed biliary duct dilation - labs show AST/alk phosph elevation - will do RUQ/GB US given RUQ pain on exam #DMT2 - on metformin and ozempic at home - will hold these medications, will add SSI - A1c pending #Lumbar radiculopathy - hx of back issues, no hx back surgeries - consider MRI lumbar spine if symptoms do not improve with interventions above #CHIQUITA on CPAP - continue CPAP HS #HTN - BPs initially soft, so will hold home losartan - continue home diltiazem #Insomnia - continue home clonazepam HS to void withdrawal - will holf home prn zolpidem but could restart if needed DVT ppx: lovenox History of Present Illness Chief Complaint: Falls, weakness Primary Care Provider: Kim Rodríguez Pt is a 69 yo female with a past med hx of lumbar radiculopathy, CHIQUITA on CPAP, HTN, and DMT2 who presents to the hospital on 01/25 for falls x2 and ongoing weakness along with sick symptoms. Pt states she felt in her normal state of health until Monday. Her is present and states that she went to get groceries in the evening on Monday and when she got home she seemed exhausted and went right to sleep for hours. He states she has been sleeping a lot more the last few days. Pt states the last few days, along with the fatigue, she has also been feeling more winded with activity without chest pain, subjective fever, and sweats. No nausea or vomiting. No diarrhea. She notes being a bit constipated, last BM was yesterday and nonbloody. She has a sore throat that started today. This evening, states she fell trying to get up from recliner and then again when getting out of bed on her own and seemed quite weak. No hx [place] or CVA. She has a hx of lumbar back pain and states she has not had back surgery but that she was told her low back is "a complete trainwreck". No presyncopal symptoms prior to falls. She did endorse R sided headache and neck pain/stiffness yesterday that has enti rely resolved on its own. No vision changes. notes she seems much better after IVF were given compared to when she came in. Allergies Allergy/AdvReac Type Severity Reaction Status Date / Time aspirin Allergy Mild HEAD GETS Verified 12/27/24 10:40 STUFFY meloxicam [From Mobic] Allergy Mild HEAD GETS Verified 12/27/24 10:40 STUFFY naproxen Allergy Mild HEAD GETS Verified 12/27/24 10:40 STUFFY Home Medications Medication Instructions Recorded Confirmed Type alpha lipoic acid 50 mg tablet 200 mg PO QAM 07/16/18 01/25/25 History cholecalciferol (vitamin D3) 25 1,000 unit PO QAM 07/16/18 01/25/25 History mcg (1,000 unit) tablet (Vitamin D3) losartan 100 mg tablet 100 mg PO QAM 07/16/18 01/25/25 History zolpidem 10 mg tablet 10 mg PO HS PRN Sleep 07/16/18 01/25/25 History omeprazole 20 mg capsule,delayed 20 mg PO QAM 06/12/19 01/25/25 History release diltiazem HCl 180 mg 180 mg PO QPM 06/14/19 01/25/25 History capsule,extended release 24 hr (Cardizem CD) Lactobacillus acidophilus 100 mg PO DAILY 01/07/21 01/25/25 History (Acidophilus capsule) acetaminophen 650 mg 650 mg PO Q12H PRN Pain 01/07/21 01/25/25 History tablet,extended release (Tylenol Arthritis Pain) magnesium oxide 500 mg PO DAILY 01/07/21 01/25/25 History sulindac 200 mg tablet 200 mg PO QAM 01/07/21 01/25/25 History gabapentin 300 mg capsule 300 mg PO BID 02/14/22 01/25/25 History metformin 1,000 mg tablet 1,000 mg PO QAM 02/14/22 01/25/25 History ascorbic acid (vitamin C) 1,000 mg 1 g PO DAILY 08/10/22 01/25/25 History tablet (Vitamin C) clonazepam 0.5 mg tablet 0.5 mg PO HS 08/10/22 01/25/25 History cyanocobalamin (vitamin B-12) 1,500 mcg PO DAILY 08/10/22 01/25/25 History 1,500 mcg disintegrating tablet duloxetine 60 mg capsule,delayed 60 mg PO QAM 08/10/22 01/25/25 History release (Cymbalta) indapamide 1.25 mg tablet 1.25 mg PO QAM 08/10/22 01/25/25 History potassium chloride 10 mEq 10 meq PO QAM 08/10/22 01/25/25 History capsule,extended release pravastatin 10 mg tablet 10 mg PO 3XWK 08/10/22 01/25/25 History thyroid (pork) 180 mg tablet 180 mg PO QAM 08/10/22 01/25/25 History ([place] Thyroid) vitamin B complex 1 cap PO DAILY 08/10/22 01/25/25 History blood sugar diagnostic (OneTouch 01/25/25 01/25/25 History Ultra Test strips) bupropion HCl 150 mg 24 hr tablet, 150 mg PO DAILY 01/25/25 01/25/25 History extended release semaglutide 1 mg/dose (4 mg/3 mL) 1 mg subcut WK 01/25/25 01/25/25 History subcutaneous pen injector (Ozempic) Past Med/Surg History Problem List (Updated 01/25/25 @ 07:17 by Meme Keller PA-C) Multiple falls (Acute) Weakness (Acute) Altered mental status (Acute) Diabetes mellitus type 2, noninsulin dependent RUQ abdominal pain KIMBERLY (acute kidney injury) Malaise and fatigue Weakness Nocturnal hypoxemia Mild obstructive sleep apnea Insomnia Snoring Hypersomnia Ingrown toenail of right foot with infection Traumatic open wound of great toe with delayed healing (Acute) Pes planus (Acute) Lumbar radiculopathy Venous ulcer (Acute) Encounter for pre-operative examination Foot deformity Diabetic foot ulcer associated with type 2 diabetes mellitus (Acute) RT FOOT/ON ANTIBIOTICS CURRENLTY *WOUND CLINIC PT CURRENTLY Diabetic peripheral neuropathy associated with type 2 diabetes mellitus Medical History GERD (gastroesophageal reflux disease) ADD (attention deficit disorder) Mood disorder Hx of deep venous thrombosis 10+ YEARS AGO AFTER TKA *WAS ON BLOOD THINNER FOR SHORT TIME Diabetes mellitus, type 2 Hypothyroidism Hyperlipidemia History of COVID-24 OCTOBER 2019>RESOLVED Posterior tibial tendon dysfunction Hypertrophy of nasal turbinates Female stress incontinence Deviated nasal septum Asthma "MILD" IN PAST>NO INHALER Osteoarthritis HTN (hypertension) Surgical History Hx of cataract surgery History of colonoscopy History of tooth extraction H/O sinus surgery H/O tubal ligation History of left knee replacement Family History Father Diabetes Coronary heart disease Myocardial infarction Mother Pancreatic cancer Diabetes Coronary heart disease Myocardial infarction Hypertension Brother Diabetes Other Cancer No family history of adverse response to anesthesia Social History Smoking Status: Never smoker Second Hand Exposure: No; Do You Dip or Chew Tobacco: No; Hx Alcohol Use: Yes Hx Substance Use: No Preferred Language: Ukrainian Communication Ability: Effective Visual Impairment: Limited Hearing Ability: Normal 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 able to assist "some" as needed. Feels Safe at Home: Yes Diet: regular Diet Comment: stated "I'm bad about that" regarding following diabetic diet. during the past year weight has: remained stable Assistive Devices: Denture - Upper and Glasses Review of Systems Review of Systems: Per HPI. Physical Exam Physical Exam: General: Alert and oriented but quite fatigue looking, does converse throughout entirety of interview without falling asleep but closes eyes at times HEENT: Normocephalic, moist oral mucosa, Cardio: Regular rate and rhythm, no murmur, Resp: Lungs clear to auscultation b/l, no wheezes or rhonchi, GI: Soft and nondistended, bowel sounds active, RUQ pain noted on palpation Skin: Warm, pink, dry, Extremities: Normal range of motion, 5/5 strength, normal sensory b/l, Results & Data Results & Data Vital Signs (Past 12 Hours) Vital Signs Temp Pulse Pulse Resp BP BP Pulse Ox 01/25/25 05:00 69 18 113/73 96 01/25/25 04:50 70 01/25/25 04:00 71 16 98/56 L 90 01/25/25 03:00 75 18 93/57 L 92 01/25/25 01:21 81 18 91 01/25/25 00:52 90 01/25/25 00:28 36.9 C 81 18 107/62 90 O2 Del Method 01/25/25 05:00 Room Air 01/25/25 04:50 01/25/25 04:00 Room Air 01/25/25 03:00 Room Air 01/25/25 01:21 Room Air 01/25/25 00:52 01/25/25 00:28 Room Air Supervising Physician Co-Signing Physician Notes Attending Attestation & Admit Note: Pt seen/examined, chart reviewed, admit care plan d/w resident physician Dr Meme Spence. I agree with the sosa components of her documentation with the following additions - ##thrombocytopenia ##mild elevation AST ##lymphopenia with toxic vacuoles on microscopy 69yo female with T2DM, obesity, polyneuropathy, HTN, hyperlipidemia, hypo thyroidism. Presents with several days of subjective fevers, rigors, poor appetite, fatigue/sleeping more, myalgias, severe headaches - simply feeling very unwell. No recent travel; no recent sick contacts. She & her live in heavily [place]ed area in [place]. No obvious tick bites. PMH/PSH/allergies/meds/sochx - reviewed VSS, afebrile - although BP was low at time of presentation; improved s/p IV fluids gen - very tired, ill appearing but not toxic, obese mouth - MM dry; no lesions neck - no JVD heart - RRR, s1 s2 lungs - CTA b/l abd - soft; minimal RUQ tenderness; minimal right flank tenderness; BS+; no HSM ext - no edema, pulses b/l feet 2+ skin - no rash labs and imaging reviewed EKG reviewed - NSR, first degree AV block, Q's inferior leads, no ST changes; poor R wave progression A/P: 1. suspected tick-borne infection vs viral infection 2. thrombocytopenia, mildly elevated AST - could be c/w #1 3. fatigue/weakness - 2nd to #1 4. right flank pain - agree with RUQ u/s, r/o biliary tract cause of presentation 5. hypothyroidism - TSH wnl -empiric doxycycline BID for #1/#2 -PT, OT evals -RUQ u/s -additional IV fluids for volume contracted state -if she fails to improve with doxy, if RUQ u/s is negative, etc - expand differential by obtaining additional tests (viral studies, MRI of l-spine, etc) -serial CBC Alonzo Badillo MD
--- NOTE | 2025-01-25 05:25 | Emergency Department Note ---
ED Visit Note I was consulted by the Advanced Practice Provider. I personally made/approved the management plan and take responsibility for the patient management. I performed a substantive portion of the visit. This includes the aspects of: -History/Physical/Personally seeing the patient -MDM -I independently interpreted the following studies: Chest x-ray-no acute infiltrates or opacities I reviewed all of the other radiographic studies interpreted by radiology. Patient's mental status seems to be much more clear at this time. I lengthy conversation with the patient and her family member who was at the bedside about the progression of her symptoms since Monday night. At this time, upon my exam, the patient's mental status seems to be back at baseline and she has no significant complaints. The [facility] will discuss the case with the admitting team. .
[2025-01-25] MEDS: SODIUM CHLORIDE 0.9% 1,000 ML IV ONE (06:21)
[2025-01-25] MEDS: SODIUM CHLORIDE 0.9% 500 ML IV ONE (06:24)
[2025-01-25 07:27] LABS: Base Excess VBG 1.5 mEq/L; HCO3 VBG 28 mmol/L; Oxygen Saturation VBG < 60.0 %; PCO2 VBG 49 mmHg (38-50); PO2 VBG 32 mmHg; pH VBG 7.36 (7.36-7.41)
[2025-01-25 08:15] LABS: Estimated Average Glucose 128 mg/dl; Hemoglobin A1C 6.1 % (4.5-5.6)
--- NOTE | 2025-01-25 08:31 | Ultrasound Report ---
US gallbladder CLINICAL HISTORY: RUQ pain COMPARISON STUDY: CT scan earlier today. FINDINGS: Pancreas is obscured by bowel gas. There is mild fatty liver. There is normal direction of flow in the portal vein. Gallbladder is unremarkable with no gallstones or gallbladder wall thickenin g. No pericholecystic fluid or ascites. Common bile duct measures normal diameter of 7 mm. Right kidn ey shows no hydronephrosis. Impression: No gallstones or evidence of acute cholecystitis seen. ACT 112: Negative or not required by law. Electronically signed by: Dedrick Ross M.D. 01/25/2025 8:28 AM
[2025-01-25] MEDS ORDERED: GLUCAGON FOR INJ 1 MG VIAL SQ PRN (10:07)
[2025-01-25] MEDS ORDERED: DEXTROSE 50% 50 ML SYRINGE IV PRN (10:07)
[2025-01-25] MEDS ORDERED: GLUCOSE 10 TAB/TUBE PO PRN (10:07)
[2025-01-25] MEDS ORDERED: ONDANSETRON INJ 2 MG/ML 2 ML VIAL IV PRN (10:07)
[2025-01-25] MEDS ORDERED: GLUCOSE 40% GEL 15 GM TUBE PO PRN (10:07)
[2025-01-25] MEDS ORDERED: CARBOHYDRATES FOR HYPOGLYCEMIA PO PRN (10:07)
--- NOTE | 2025-01-25 10:25 | Billing Data ---
Date of Service January 25, 2025 Coding Level of Care Code 87955 INT INP/OBS CARE
[2025-01-25] MEDS: GABAPENTIN 300 MG CAP PO SCH (10:59)
[2025-01-25] MEDS: DULoxetine HCL 60 MG CAP PO SCH (10:59)
[2025-01-25] MEDS: DOXYCYCLINE HYCLATE 100 MG CAP PO SCH (10:59)
[2025-01-25] MEDS: ENOXAPARIN INJ 40 MG/0.4 ML SYR SQ SCH (10:59)
[2025-01-25] MEDS: ARMOUR THYROID 30 MG TAB PO SCH (10:59)
[2025-01-25] MEDS: buPROPion XL 150 MG TABCR PO SCH (10:59)
[2025-01-25] MEDS: PANTOprazole 40 MG TAB PO SCH (10:59)
[2025-01-25] MEDS: LACTATED RINGER'S 1,000 ML IV SCH (10:59)
[2025-01-25] MEDS: INSULIN ASPART PER UNIT CHARGE SC SCH (11:01)
[2025-01-25] MEDS: POTASSIUM CHLORIDE 10 MEQ TABCR PO SCH (11:10)
--- NOTE | 2025-01-25 12:07 | Hospitalist Progress Note ---
Date of Service January 25, 2025 Assessment & Plan (1) Weakness: (2) Malaise and fatigue: (3) KIMBERLY (acute kidney injury): (4) RUQ abdominal pain: (5) Diabetes mellitus type 2, noninsulin dependent: (6) Lumbar radiculopathy: (7) Mild obstructive sleep apnea: Plan Pt is a 69 yo female with a past med hx of lumbar radiculopathy, CHIQUITA on CPAP, HTN, and DMT2 who presents to the hospital on 01/25 for falls x2 and ongoing weakness along with sick symptoms. #Weakness #General malaise - admitted for falls x2 at home and weakness along with generalized malaise symptoms and subjective fevers - given lowered platelets and nonspecific infection symptoms, suspect tick- borne; these are pending - blood cx pending - if worsens, would consider brain MRI +/- lumbar puncture given symptoms yesterday of neck stiffness/headache, although these not present today - CRP and procal pending - will tx empirically with doxy - of note, she is on multiple drugs that can be sedating; zolpidem, clonazepam, gabapentin #KIMBERLY - no hx CKD - Cr on admission 1.26 - given 500mL bolus x2, will do sub-maintenance fluids 80/hr for 1 bag for further hydration while encouraging po intake #RUQ pain - CT abd showed biliary duct dilation - labs show AST/alk phosph elevation - will do RUQ/GB US given RUQ pain on exam #DMT2 - on metformin and ozempic at home - will hold these medications, will add SSI - A1c pending #Lumbar radiculopathy - hx of back issues, no hx back surgeries - consider MRI lumbar spine if symptoms do not improve with interventions above #CHIQUITA on CPAP - continue CPAP HS #HTN - BPs initially soft, so will hold home losartan - continue home diltiazem #Insomnia - continue home clonazepam HS to void withdrawal - will holf home prn zolpidem but could restart if needed DVT ppx: lovenox ##thrombocytopenia ##mild elevation AST ##lymphopenia with toxic vacuoles on microscopy labs and imaging reviewed EKG reviewed - NSR, first degree AV block, Q's inferior leads, no ST changes; poor R wave progression A/P: 1. suspected tick-borne infection vs viral infection 2. thrombocytopenia, mildly elevated AST - could be c/w #1 3. fatigue/weakness - 2nd to #1 4. right flank pain - agree with RUQ u/s, r/o biliary tract cause of presentation 5. hypothyroidism - TSH wnl -empiric doxycycline BID for #1/#2 -PT, OT evals -RUQ u/s -additional IV fluids for volume contracted state -if she fails to improve with doxy, if RUQ u/s is negative, etc - expand di fferential by obtaining additional tests (viral studies, MRI of l-spine, etc) -serial CBC Admission and Anticipated Discharge Date Admission Date: January 25, 2025 Physical Exam Physical Exam: 69yo female with T2DM, obesity, polyneur opathy, HTN, hyperlipidemia, hypothyroidism. Presents with several days of subjective fevers, rigors, poor appetite, fatigue/sleeping more, myalgias, severe headaches - simply feeling very unwell. No recent travel; no recent sick contacts. She & her live in heavily wooded area in [place]. No obvious tick bites. PMH/PSH/allergies/meds/sochx - reviewed VSS, afebrile - although BP was low at time of presentation; improved s/p IV fluids gen - very tired, ill appearing but not toxic, obese mouth - MM dry; no lesions neck - no JVD heart - RRR, s1 s2 lungs - CTA b/l abd - soft; minimal RUQ tenderness; minimal right flank tenderness; BS+; no HSM ext - no edema, pulses b/l feet 2+ skin - no rash Results & Data Results & Data Vital Signs (Past 12 Hours) Vital Signs Temp Pulse Pulse Pulse Resp BP BP 01/25/25 10:07 65 01/25/25 10:07 01/25/25 10:07 36.5 C 67 16 126/76 01/25/25 09:46 74 16 144/88 H 01/25/25 09:00 64 16 145/93 H 01/25/25 08:50 66 01/25/25 07:40 69 13 122/86 01/25/25 06:00 65 20 114/72 01/25/25 05:00 69 18 113/73 01/25/25 04:50 70 01/25/25 04:00 71 16 98/56 L 01/25/25 03:00 75 18 93/57 L 01/25/25 01:21 81 18 01/25/25 00:52 90 01/25/25 00:28 36.9 C 81 18 107/62 Pulse Ox Pulse Ox O2 Del Method O2 Del Method 01/25/25 10:07 01/25/25 10:07 98 Room Air 01/25/25 10:07 98 Room Air 01/25/25 09:46 97 Room Air 01/25/25 09:00 94 01/25/25 08:50 01/25/25 07:40 96 Room Air 01/25/25 06:00 93 Room Air 01/25/25 05:00 96 Room Air 01/25/25 04:50 01/25/25 04:00 90 Room Air 01/25/25 03:00 92 Room Air 01/25/25 01:21 91 Room Air 01/25/25 00:52 01/25/25 00:28 90 Room Air PG Care Time/CCT Total # of Minutes Spent Total Time Spent with Patient: Total time spent is greater than 50% in coordination of care (as documented) at patient's floor/unit and/or counseling patient: Coding Level of Care Code None Diagnoses Weakness R53.1 Malaise and fatigue R53.81; R53.83 KIMBERLY (acute kidney injury) N17.9 RUQ abdominal pain R10.11 Diabetes mellitus type 2, noninsulin dependent E11.9 Lumbar radiculopathy M54.16 Mild obstructive sleep apnea G47.33
[2025-01-25] MEDS: ACETAMINOPHEN 325 MG TAB PO PRN (15:40)
[2025-01-25] MEDS: dilTIAZem HCL 180 MG CAPCR PO SCH (21:02)
[2025-01-25] MEDS: clonazePAM 0.5 MG TAB PO SCH (21:02)
[2025-01-26 06:37] LABS: Albumin Globulin Ratio 1.2 (0.9-2); Albumin Level 3.2 gm/dl (3.4-5.0); Bilirubin,Total 0.5 mg/dl (0.2-1.0); Calcium 8.6 mg/dl (8.6-10.3); Creatinine Clr Calc Pharmacy 88.3 ml/min; Globulin 2.7 gm/dl (2.5-4.0); Potassium 3.6 mmol/L (3.5-5.1); Total Protein 5.9 gm/dl (6.0-8.3)
[2025-01-26 07:09] LABS: Hematocrit (blood only) 39.6 % (37.0-47.0); Hemoglobin 13.3 g/dl (12.0-16.0); Mean Corpuscular Hemoglobin 29.7 pg (25.0-34.0); Mean Corpuscular Hgb Conc 33.6 g/dL (32.0-36.0); Mean Corpuscular Volume 88.4 fL (80.0-100.0); Mean Platelet Volume 11.1 fL (9.4-12.4); Platelet Count 107 K/uL (130-400); RDW Coefficient of Variation 12.8 % (11.5-14.5); Red Blood Count 4.48 M/uL (4.20-5.40); White Blood Count 5.16 K/ul (4.8-10.8)
[2025-01-26 07:23] LABS: ANC (manual) 1.86 K/uL (1.4-6.5); Eosinophils # (manual) 0.05 K/uL (0-0.50); Eosinophils % (manual) 1 %; Lymphocytes # (manual) 2.37 K/uL (1.2-3.4); Lymphocytes % (manual) 46 %; Monocytes # (manual) 0.15 K/uL (0.11-0.59); Monocytes % (manual) 3 %; Neutrophils # (manual) 1.86 K/uL (1.40-6.50); Neutrophils % (manual) 36 %; RBC Morphology Unremarkable; Reactive Lymphocytes # (manual) 0.72 K/uL; Reactive Lymphocytes % (manual) 14 %
[2025-01-26] MEDS: POLYETHYLENE (MIRALAX) 17 GM PACK PO PRN (15:28)
--- NOTE | 2025-01-26 16:45 | Hospitalist Progress Note ---
Date of Service January 26, 2025 Assessment & Plan (1) Weakness: Plan: Present on admission now it has resolved continue physical therapy (2) Malaise and fatigue: Plan: Follow-up on low platelets and increased liver enzymes patient also has elevated CRP levels (3) KIMBERLY (acute kidney injury): Plan: Present on admission now resolved patient's creatinine was 1.26 now it is 0.75 I saw many soda bottles next to patient advised to refrain from drinking soft drinks weights high fructose corn syrup as it affects the kidneys (4) RUQ abdominal pain: Plan: Ultrasound of the right upper quadrant was negative for any gallstones or any evidence of acute cholecystitis patient still is complaining of some right-sided abdominal pain we will try giving her MiraLAX as she is constipated (5) Diabetes mellitus type 2, noninsulin dependent: Plan: Hemoglobin A1c 6.1 and BMI is 35.1 patient will benefit from reducing weight (6) Lumbar radiculopathy: Plan: Continue physical therapy and guidance for reducing weight (7) Mild obstructive sleep apnea: Plan Pt is a 69 yo female with a past med hx of lumbar radiculopathy, CHIQUITA on CPAP, HTN, and DMT2 who presents to the hospital on 01/25 for falls x2 and ongoing weakness along with sick symptoms. #Weakness #General malaise - admitted for falls x2 at home and weakness along with generalized malaise symptoms and subjective fevers - given lowered platelets and nonspecific infection symptoms, suspect tick- borne; these are pending - blood cx pending - if worsens, would consider brain MRI +/- lumbar puncture given symptoms yesterday of neck stiffness/headache, although these not present today - CRP level is 8.57 - will tx empirically with doxy - of note, she is on multiple drugs that can be sedating; zolpidem, clonazepam, gabapentin #KIMBERLY - no hx CKD - Cr on admission 1.26 - given 500mL bolus x2, will do sub-maintenance fluids 80/hr for 1 bag for further hydration while encouraging po intake - On 622 creatinine is 0.75 #RUQ pain - CT abd showed biliary duct dilation - labs show AST/alk phosph elevation - Ultrasound of the abdomen shows no gallstones or evidence of acute cholecystitis #DMT2 - on metformin and ozempic at home - will hold these medications, will add SSI - A1c 6.1 #Lumbar radiculopathy - hx of back issues, no hx back surgeries - consider MRI lumbar spine if symptoms do not improve with interventions above - Patient ambulated in the room #CHIQUITA on CPAP - continue CPAP HS #HTN - BPs initially soft, so will hold home losartan - continue home diltiazem #Insomnia - continue home clonazepam HS to void withdrawal - will holf home prn zolpidem but could restart if needed DVT ppx: lovenox ##thrombocytopenia ##mild elevation AST ##lymphopenia with toxic vacuoles on microscopy labs and imaging reviewed EKG reviewed - NSR, first degree AV block, Q's inferior leads, no ST changes; poor R wave progression A/P: 1. suspected tick-borne infection vs viral infection 2. thrombocytopenia, mildly elevated AST - could be c/w #1 3. fatigue/weakness - 2nd to #1 4. right flank pain - agree with RUQ u/s, r/o biliary tract cause of presentation 5. hypothyroidism - TSH wnl -empiric doxycycline BID for #1/#2 -PT, OT evals -RUQ u/s -additional IV fluids for volume contracted state -if she fails to improve with doxy, if RUQ u/s is negative, etc - expand differential by obtaining additional tests (viral studies, MRI of l-spine, etc) -serial CBC Admission and Anticipated Discharge Date Admission Date: January 25, 2025 Subjective Patient was able to ambulate she denies any pain and discomfort she has some ear aches and complains of constipation Physical Exam Physical Exam: 69yo female with T2DM, obesity, polyneur opathy, HTN, hyperlipidemia, hypothyroidism.Presents with several days of subjective fevers, rigors, poor appetite, fatigue/sleeping more, myalgias, severe headaches - simply feeling very unwell. No recent travel; no recent sick contacts. She & her live in heavily wooded area in [place]. No obvious tick bites. PMH/PSH/allergies/meds/sochx - reviewed VSS, afebrile - although BP was low at time of presentation; improved s/p IV fluids gen - very tired, ill appearing but not toxic, obese mouth - MM dry; no lesions neck - no JVD heart - RRR, s1 s2 lungs - CTA b/l abd - soft; minimal RUQ tenderness; minimal right flank tenderness; BS+; no HSM ext - no edema, pulses b/l feet 2+ skin - no rash Results & Data Results & Data Vital Signs (Past 12 Hours) Vital Signs Temp Pulse Pulse Resp BP BP Pulse Ox 01/26/25 15:52 36.7 C 78 17 134/83 93 01/26/25 11:49 36.7 C 77 17 143/86 H 94 01/26/25 08:08 36.6 C 99 H 18 111/82 95 01/26/25 07:31 79 O2 Del Method 01/26/25 15:52 Room Air 01/26/25 11:49 Room Air 01/26/25 08:08 Room Air 01/26/25 07:31 PG Care Time/CCT Total # of Minutes Spent Total Time Spent with Patient: Total time spent is greater than 50% in coordination of care (as documented) at patient's floor/unit and/or counseling patient: Coding Level of Care Code 22645 SUB INP/OBS CARE 2/35MIN Diagnoses Weakness R53.1 Malaise and fatigue R53.81; R53.83 KIMBERLY (acute kidney injury) N17.9 RUQ abdominal pain R10.11 Diabetes mellitus type 2, noninsulin dependent E11.9 Lumbar radiculopathy M54.16 Mild obstructive sleep apnea G47.33
[2025-01-27] MEDS: CARBAMIDE PEROXIDE 6.5% 15 ML BTL OT PRN (00:17)
[2025-01-27 06:24] LABS: Hemoglobin 13.1 g/dl (12.0-16.0); Mean Corpuscular Hemoglobin 29.5 pg (25.0-34.0); Mean Corpuscular Hgb Conc 33.6 g/dL (32.0-36.0); Mean Corpuscular Volume 87.8 fL (80.0-100.0); Mean Platelet Volume 10.9 fL (9.4-12.4); Platelet Count 144 K/uL (130-400); RDW Coefficient of Variation 12.6 % (11.5-14.5); RDW Standard Deviation 40.9 fL (36.4-46.3); Red Blood Count 4.44 M/uL (4.20-5.40)
[2025-01-27 06:48] LABS: Albumin Level 3.4 gm/dl (3.4-5.0); BUN Creatinine Ratio 17.8 (10-20); Creatinine Clr Calc Pharmacy 90.1 ml/min; Potassium 3.6 mmol/L (3.5-5.1)
[2025-01-27 06:59] LABS: Albumin Globulin Ratio 1.2 (0.9-2); Bilirubin,Total 0.5 mg/dl (0.2-1.0); Globulin 2.9 gm/dl (2.5-4.0); Total Protein 6.3 gm/dl (6.0-8.3)
[2025-01-27 07:19] LABS: Basophils # (auto) 0.04 K/uL (0.00-0.20); Basophils % (auto) 0.6 %; Eosinophils % (auto) 1.4 %; Immature Granulocytes # (auto) 0.03 K/uL (0.01-0.20); Immature Granulocytes % (auto) 0.4 %; Lymphocytes # (auto) 3.92 K/uL (1.20-3.40); Lymphocytes % (auto) 56.8 %; Monocytes # (auto) 0.88 K/uL (0.11-0.59); Monocytes % (auto) 12.8 %; Neutrophils # (auto) 1.93 K/uL (1.40-6.50)
[2025-01-27 12:09] VITALS: RESP 18; TEMP 97.3; O2SAT 93
--- NOTE | 2025-01-27 13:13 | Discharge Summary ---
Discharge Summary Date of Service January 27, 2025 Principal Dx & Hospital Course #1 = Principal Diagnosis (1) Weakness: [id number] female with past medical history of lumbar radiculopathy, CHIQUITA on CPAP, hypertension, DM2 who presented with weakness, general malaise, and abdominal pain. CRP was elevated on admission. Did receive empiric treatment with doxycycline. She did not have a leukocytosis or thrombocytopenia. Lyme testing was negative. Smear for anaplasmosis/babesia were negative. Final extended tickborne panel was pending at time of discharge. Patient had some right upper quadrant discomfort which resolved after taking MiraLAX. To do as outpatient: 1. Follow-up on final send out tick panel results. If clinically patient regresses then would resume and treat empirically with a full course of doxycycline. 2. Continue MiraLAX daily 3. Follow-up to PCP Weakness, malaise DDx includes viral, tickborne. Lyme testing was negative. Peripheral smear negative. She had a minimal intermittent trace elevation of AST, ALT and bilirubin were normal. Final extended tickborne panel was pending at discharge. She had a transient minimal thrombocytopenia which normalized of discharge Patient was treated with empiric doxycycline on admission. This was discontinued with negative initial tickborne pending. Final results should be followed up as outpatient DDx includes viral illness with volume contraction Patient felt improved and weakness had resolved at time of discharge Left ear discomfort Otoscopic evaluation day of discharge was with no injection/erythema/air-fluid level suggestive of otitis. Slightly retracted. Patient was with history of allergies. Instructed to use [id number] Flonase and correct technique was reviewed at the bedside. KIMBERLY Resolved Type 2 diabetes Continue home metformin/Ozempic. If recurrent GI symptoms may need to consider discontinuing Ozempic. She did endorse some constipation like symptoms and hard stools however these improved with MiraLAX and hydration I would cont inue these regularly moving forward. CHIQUITA on CPAP Continue CPAP at bedtime (2) Malaise and fatigue: (3) KIMBERLY (acute kidney injury): (4) RUQ abdominal pain: Ultrasound of the right upper quadrant was negative for any gallstones or any evidence of acute cholecystitis. Resolved w miralax (5) Diabetes mellitus type 2, noninsulin dependent: (6) Lumbar radiculopathy: (7) Mild obstructive sleep apnea: Admission HPI Per Admitting Provider Pt is a 69 yo female with a past med hx of lumbar radiculopathy, CHIQUITA on CPAP, HTN, and DMT2 who presents to the hospital on 01/25 for falls x2 and ongoing weakness along with sick symptoms. Pt states she felt in her normal state of health until Monday. Her is present and states that she went to get groceries in the evening on Monday and when she got home she seemed exhausted and went right to sleep for hours. He states she has been sleeping a lot more the last few days. Pt states the last few days, along with the fatigue, she has also been feeling more winded with activity without chest pain, subjective fever, and sweats. No nausea or vomiting. No diarrhea. She notes being a bit constipated, last BM was yesterday and nonbloody. She has a sore throat that started today. This evening, states she fell trying to get up from recliner and then again when getting out of bed on her own and seemed quite weak. No hx IL or CVA. She has a hx of lumbar back pain and states she has not had back surgery but that she was told her low back is "a complete trainwreck". No presyncopal symptoms prior to falls. She did endorse R sided headache and neck pain/stiffness yesterday that has entirely resolved on its own. No vision changes. notes she seems much better after IVF were given compared to when she came in. Discharge Exam General: A&Ox3. NAD. Cooperative. HEENT: Atraumatic, normocephalic. Vision and hearing grossly intact Pulm: CTAB A&P. -wheezes, -rales, -rhonchi. Symmetrical chest rise. No increased work of breathing. No respiratory distress. Cardiac: RRR, -mrg. Radial pulses intact and symmetrical. Abdominal: Nontender, nondistended, soft. BS present. Discharge Plan Discharge Items Patient Disposition: Home - Home Health Services Reason For Visit: WEAKNESS,FALLS,SICK Discharge Diagnosis: Weakness Condition on Discharge: Fair Activity: Resume your previous activity Non-emergency contact: Primary Care Provider Call non-emergency contact if: you have any medication questions, your symptoms worsen and your pain is not controlled Follow-up/Referrals: Kim Rodríguez PA-C [Primary Care Provider] - Diet: Regular Addtl Attending Provider Instructions: You are seen in the hospital for weakness and concern of a tickborne versus viral illness. Your Lyme testing was negative. Your initial screen for related tickborne illnesses, anaplasmosis and babesiosis, were negative. Final send out for definitive tickborne testing was pending and will not be available for several days. You are treated initially with doxycycline to cover for tickborne illnesses, this was discontinued when your symptoms resolved and your initial tickborne testing was negative. Platelets were slightly low initially, these normalized by time of discharge. This can occur due to both tickborne and viral illnesses. if your symptoms return or you clinically worsen then your doxycycline can be resumed for a full 10-day course, please call your PCP for any worsening or recurrent symptoms. Your PCP should also follow-up on the final extended testing of your tickborne panel. You should have repeat blood work including a CBC and CRP drawn by your PCP in ~1 week If you develop any new or worsening symptoms including fever, chills, sweats, chest pain, chest pressure, difficulty breathing, uncontrolled nausea/vomiting, rash, wheezing, passing out or nearly passing out, bleeding, black/bloody bowel movements, or other new or concerning symptoms please call your primary care physician, or call 911 for re-evaluation in the emergency department if you are very concerned. Pending Studies at Discharge: No Stand-Alone Forms: My [facility], Smoking Cessation Medications and DC Order Prescriptions: Continued diltiazem HCl [Cardizem CD] 180 mg capsule,extended release 24hr 180 mg PO QPM magnesium oxide 500 mg tablet 500 mg PO DAILY Lactobacillus acidophilus [Acidophilus] Capsule 100 mg PO DAILY acetaminophen [Tylenol Arthritis Pain] 650 mg tablet extended release 650 mg PO Q12H PRN (Reason: Pain) sulindac 200 mg tablet 200 mg PO QAM gabapentin 300 mg capsule 300 mg PO BID metformin 1,000 mg tablet 1,000 mg PO QAM zolpidem 10 mg tablet 10 mg PO HS PRN (Reason: Sleep) losartan 100 mg tablet 100 mg PO QAM alpha lipoic acid 50 mg Tablet 200 mg PO QAM cholecalciferol (vitamin D3) [Vitamin D3] 1,000 unit Tablet 1,000 unit PO QAM omeprazole 20 mg capsule,delayed release(DR/EC) 20 mg PO QAM ascorbic acid (vitamin C) [Vitamin C] 1,000 mg Tablet 1 g PO DAILY potassium chloride 10 mEq Capsule, Extended Release 10 meq PO QAM clonazepam 0.5 mg Tablet 0.5 mg PO HS Rx Instructions: administer 30 minutes before bedtime pravastatin 10 mg Tablet 10 mg PO 3XWK indapamide 1.25 mg Tablet 1.25 mg PO QAM vitamin B complex Capsule 1 cap PO DAILY duloxetine [Cymbalta] 60 mg Capsule,Delayed Release(Dr/Ec) 60 mg PO QAM [place] Thyroid 180 mg Tablet 180 mg PO QAM cyanocobalamin (vitamin B-12) 1,500 mcg Tablet,Disintegrating 1,500 mcg PO DAILY (DME) OneTouch Ultra Test Strip MISCELLANEOUS bupropion HCl 150 mg tablet extended release 24 hr 150 mg PO DAILY Ozempic 1 mg/dose (4 mg/3 mL) pen injector 1 mg SUBCUT WK Discharge Orders: Discharge Order (Routine); Ordered 01/27/25 Ordered By: Noe Kohli/Other Patient Handouts: Managing Type 2 Diabetes, Special Foot Care for Diabetes Admission Data Admit Date/Time: 01/25/25 06:32 Attending Provider: Noe Delacruz Admit Provider: Meme Spence Primary Care Provider: Kim Rodríguez Other Providers: Alonzo Badillo Hospital Stay Data Consultations 01/25/25 05:34 ED Decision to Admit Stat Diagnostic Imagining Performed 01/25/25 01:16 CT abd pelvis IV con only Stat CT cervical spine wo con Stat CT chest diagnostic w con Stat 01/25/25 01:17 CT head/brain wo con Stat 01/25/25 06:32 US gallbladder Stat Discharge Instructions Given to Patient (Per Discharging Provider) You are seen in the hospital for weakness and concern of a tickborne versus viral illness. Your Lyme testing was negative. Your initial screen for related tickborne illnesses, anaplasmosis and babesiosis, were negative. Final send out for definitive tickborne testing was pending and will not be available for several days. You are treated initially with doxycycline to cover for tickborne illnesses, this was discontinued when your symptoms resolved and your initial tickborne testing was negative. Platelets were slightly low initially, these normalized by time of discharge. This can occur due to both tickborne and viral illnesses. if your symptoms return or you clinically worsen then your doxycycline can be resumed for a full 10-day course, please call your PCP for any worsening or recurrent symptoms. Your PCP should also follow-up on the fin al extended testing of your tickborne panel. You should have repeat blood work including a CBC and CRP drawn by your PCP in ~1 week If you develop any new or worsening symptoms including fever, chills, sweats, chest pain, chest pressure, difficulty breathing, uncontrolled nausea/vomiting, rash, wheezing, passing out or nearly passing out, bleeding, black/bloody bowel movements, or other new or concerning symptoms please call your primary care physician, or call 911 for re-evaluation in the emergency department if you are very concerned. Total Time Total Time Spent Total Time Spent (In Minutes): Time spend day of discharge 40 minutes including direct patient care, documentation, review of labs and images, and coordination of care. Coding Level of Care Code 58818 INP/OBS DISCH >30 MIN Diagnoses Weakness R53.1 Malaise and fatigue R53.81; R53.83 KIMBERLY (acute kidney injury) N17.9 RUQ abdominal pain R10.11 Diabetes mellitus type 2, noninsulin dependent E11.9 Lumbar radiculopathy M54.16 Mild obstructive sleep apnea G47.33
[2025-01-27 15:37] VITALS: BP 144/81; PULSE 64
--- NOTE | 2025-01-27 16:01 | Electrocardiogram Report ---
Test Reason : Blood Pressure : */* mmHG Vent. Rate : 87 BPM Atrial Rate : 87 BPM P-R Int : 214 ms QRS Dur : 74 ms QT Int : 374 ms P-R-T Axes : 17 -20 25 degrees QTcB Int : 450 ms Sinus rhythm with 1st degree A-V block Inferior infarct , age undetermined Anterior infarct , age undetermined Abnormal ECG When compared with ECG of 24-Jul-2020 17:32, Anterior infarct is now Present No significant change was found Confirmed by Kvng Ordaz ([id number]) on 01/27/2025 4:00:59 PM Referred By: REFERRED SELF Confirmed By: Kvng Ordaz
[2025-01-29 15:11] LABS: Babesia microti DNA Not Detected (Not Detected)
[2025-01-30 23:58] LABS: Q Fever IgG, Phase I NEGATIVE; Q Fever Phase I IgM Antibody NEGATIVE; Q Fever Phase II IgG Antibody NEGATIVE; Q Fever Phase II IgM Antibody NEGATIVE; R. typhi IgG Ab NOT DETECTED; R. typhi IgM Ab NOT DETECTED; RMSF IgG Ab NOT DETECTED; RMSF IgM Ab NOT DETECTED
== END 2025-01-27 16:25 | disposition home health service (06) | DRG 866 ==
LOC: SUATTDRO → ED 00:37 → 2N 06:32 → INTOOBSV 06:32 → SUATTDRO 06:32 → 2N 09:46